=== PATIENT | male | born 1960 | race Caucasian/White ===

== ENCOUNTER → 2021-08-26 | Day surgery (SDC) | payer OTHER ==
[~2021-08-26] VITALS: Ht 170.2 cm; Wt 86.2 kg
[~2021-08-26] MED LIST: ACETAMINOPHEN500 M1 PO; CIPRO500 MG PO; DULERA 100 MCG8.8 GM INH; LISINOPRIL40 MG PO; METOPROLOL SUCC25 MG PO; MOTRIN600 MG PO; NITROFURANTOIN100 M1 PO; PYRIDIUM200 MG PO; VENTOLIN (2.5 MG/3 M INH
== END | disposition home or self-care (01) ==
LOC: FAS 08-23 12:15
DX: C34.92 Malignant neoplasm of unspecified part of left bronchus or lung (principal); I10 Essential (primary) hypertension; F17.200 Nicotine dependence, unspecified, uncomplicated; J44.9 Chronic obstructive pulmonary disease, unspecified; D64.9 Anemia, unspecified; Z88.8 Allergy status to other drugs, medicaments and biological substances; Z79.899 Other long term (current) drug therapy; Z80.9 Family history of malignant neoplasm, unspecified; Z72.89 Other problems related to lifestyle
CPT/HCPCS: 71045; 76000; C1788; J0690; J1644; J2001; J2250; J2704; J3010; J7120